=== PATIENT | female | born 1935 | race African-American/Black ===

== ENCOUNTER 2016-11-16 07:31 | Day surgery (SDC) | payer OTHER ==
[2016-11-15 09:04] VITALS: BMI 23.6
[2016-11-16] MEDS ORDERED: ROPIVACAINE HCL 0.5% 30ML VIAL ONE (08:40)
[2016-11-16] MEDS ORDERED: MIDAZOLAM HCL 2 MG/2 ML SINGLE DOSE VIAL ONE ×2 (08:40→10:49)
[2016-11-16] MEDS ORDERED: DEXAMETHASONE SOD PHOSPHATE/PF 10 MG/ML SDV ONE (08:40)
[2016-11-16] MEDS ORDERED: ceFAZolin SODIUM 1 GM VIAL ONE (10:49)
[2016-11-16] MEDS ORDERED: SUCCINYLCHOLINE CHLORIDE 200 MG/10 ML VIAL ONE (10:49)
[2016-11-16] MEDS ORDERED: PROPOFOL 20 ML ONE ×2 (10:49→11:31)
[2016-11-16] MEDS ORDERED: ONDANSETRON 4 MG/2 ML VIAL ONE (11:18)
[2016-11-16] MEDS ORDERED: oxyCODONE HCL 10 MG SUSTAINED ACTING TABLET PO ONE (12:29)
[2016-11-16] MEDS ORDERED: oxyCODONE HCL 5 MG TABLET PO PRN (12:29)
--- NOTE | 2016-11-16 12:34 | DS ---
Physical Examination Vital Signs: Vital Signs Temperature 97.9 F 11/16/16 08:09 Pulse Rate 74 11/16/16 08:09 Respiratory Rate 18 11/16/16 08:09 Blood Pressure 140/79 11/16/16 08:09 O2 Sat by Pulse Oximetry (%) 98 11/16/16 08:09 Discharge Summary Reason For Visit: ROTATOR CUFF TEAR, CALCIFI. TENDINITIS, LEFT SHLD Condition: Good - Instructions Diet, Activity, Other Instructions: Post Operative Instructions: Shoulder Arthroscopy Dr Jamey Mcgovern 1. Pain following a Shoulder Arthroscopy is variable and can be significant. Some patients will have more pain than others. You have been provided with a prescription for medication that contains a narcotic. You are not allowed to drive while on this medication. You should NOT take Tylenol (Acetaminophen) when taking the pain medication ( it will result in an overdose). Feel free to take medications such as Ibuprofen or Naprosyn in addition to the pain medicine if you do not have any problems with the NSAID class of medications. 2. Apply ice to the shoulder for 15 minutes every hour. You may continue this for as many days as necessary. 3. You may find sleeping on an incline (reclining chair) to be more comfortable for the first few days. 4 You may remove your sling when the arm is comfortable. 5. You may use the arm as tolerated. 6. You may remove the bandages in 48 hours. You may shower at that point. 7. Place band-aids on the sutures after your shower.Do not put any creams or lotions on the incision until after the sutures are removed. 8. Please call the office to schedule a visit to have your sutures removed. 9. If for any reason you believe you may have an infection or are concerned, please feel free to call me. I can be reached through our office number 24 hours a day. 10. Please call our office with any questions; we will review the surgical findings during your post-operative visit. Disposition: HOME - Home Medications Comprehensive Discharge Medication List: Ambulatory Orders Calcium Carbonate [Tums Ultra Strength] 1,177 mg PO DAILY PRN 11/15/16 Chlorpheniramine Maleate [Allergy Relief] 4 mg PO DAILY 11/15/16 Cholecalciferol (Vitamin D3) [Vitamin D3] 2,000 unit PO DAILY 11/15/16 Estrogens,Conjugated [Premarin -] 1.25 mg PO ASDIR 11/15/16 Tramadol HCl 50 mg PO TID PRN 11/15/16 Tramadol HCl [Tramadol HCl ER] 100 mg PO DAILY 11/15/16
--- NOTE | 2016-11-16 12:34 | OP ---
Operative Note - Note: Operative Date: 11/16/16 Pre-Operative Diagnosis: Left Frozen Shoulder, Left shoulder synovitis, Left shoulder rotator cuff tear Operation: LSA, debridement, decompression, synovectomy, capsular release Post-Operative Diagnosis: Same as Pre-op Surgeon: Jamey Mcgovern Anesthesiologist/PROGRAMMER: Rogelio Soliman Anesthesia: General Operative Report Dictated: Yes
[2016-11-16 13:27] VITALS: TEMP 98
--- NOTE | 2016-11-16 13:31 | SURG ---
Surgery Reed Polisher Note Reed Polisher: Ariel Worrell PA-C Date of Service: 11/16/16 Diagnosis: Left Frozen Shoulder, Left shoulder synovitis, Left shoulder rotator cuff tear Procedure: Left shoulder arthroscopy, debridement, decompression, synovectomy, capsular release I was present for the entirety of the operative procedure. For further detail, please refer to operative report. Visit type - Case Type Case Type: Scheduled Admission - New patient This patient is new to me today: Yes Date on this admission: 11/16/16
[2016-11-16 16:10] VITALS: BP 135/78; PULSE 67
--- NOTE | 2016-11-20 14:02 | PATH ---
Surgical Pathology Report Patient Name: REESE FRIEND [facility]. Rec. #: [id number] /Age/Gender: 1935 (Age: 81) / F Account: [id number] Location: [facility] Taken: 11/16/2016 Received: 11/16/2016 Reported: 11/20/2016 Physicians: Jamey Mcgovern M.D. 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 FRAGMENTS OF UNREMARKABLE SKELETAL MUSCLE. Electronically Signed Navin Schilling M.D. Gross Description Received in formalin, labeled "shavings left shoulder" is a 3 x 2 x 0.5 cm. aggregate of whitehead-white soft tissue fragments. A sales representative education courses portion is submitted in one cassette. AF/11/19/2016 final/11/19/2016
== END 2016-11-16 14:15 | disposition home or self-care (01) ==
LOC: FASU 07:31
PROVIDERS: ATTEND Orthopaedic Surgery
PROC: 0RNK4ZZ Release Left Shoulder Joint, Percutaneous Endoscopic Approach (ICD-10-PCS; 2016-11-16)
PROC: 0RBK4ZZ Excision of Left Shoulder Joint, Percutaneous Endoscopic Approach (ICD-10-PCS; 2016-11-16)
PROC: 0LB24ZZ Excision of Left Shoulder Tendon, Percutaneous Endoscopic Approach (ICD-10-PCS; principal; 2016-11-16 11:30)
DX: M75.122 Complete rotator cuff tear or rupture of left shoulder, not specified as traumatic (principal); M75.02 Adhesive capsulitis of left shoulder; M75.32 Calcific tendinitis of left shoulder
CPT/HCPCS: 88304-TC